=== PATIENT | male | born 1990 | race Caucasian/White ===

== ENCOUNTER 2018-03-28 17:25 | Emergency (ER) | payer BC ==
[~2018-03-28] VITALS: Ht 175.3 cm; Wt 85.7 kg
[2018-03-28 17:29] VITALS: Ht 175.3 cm; Wt 85.7 kg
[2018-03-28 19:09] VITALS: BP 129/82
== END 2018-03-28 20:05 | disposition home or self-care (01) ==
LOC: ED 17:25
DX: F41.9 Anxiety disorder, unspecified (principal); F17.210 Nicotine dependence, cigarettes, uncomplicated
CPT/HCPCS: 82962; 99406